=== PATIENT | male | born 1965 | race Caucasian/White ===

== ENCOUNTER 2022-04-17 08:06 | Emergency (ER) | payer OTHER ==
[~2022-04-17] VITALS: Ht 170 cm; Wt 90.0 kg
[2022-04-17] MEDS ORDERED: AUGMENTIN 875 MG TAB (AMOXICILLIN/CLAVULANATE) PO STA (08:31)
[2022-04-17] MEDS ORDERED: AMOX1TAB12 PO (08:37)
--- NOTE | 2022-04-17 08:38 | ED Cough/URI ---
General Chief Complaint: Cough/Cold/Flu Symptoms Stated Complaint: CONGESTION, COUGH Nursing Triage Note: [place], had a neg covid test to return but was feeling like he had a sinus infection, also had diarrhea. Source: patient Exam Limitations: no limitations History of Present Illness Date Seen by Provider: Apr 17, 2022 Time Seen by Provider: 08:25 Initial Comments Patient is a 56-year-old male who presents to the emergency department today with a chief complaint of sinus congestion, nasal discharge, productive cough, generalized malaise and fatigue. Patient has had symptoms for at least 2 weeks. He has been using multiple yycw-fbd-wfezodn symptomatic remedies without any relief of symptoms. He complains of low-grade fever, greenish-yellow nasal discharge. He is a light smoker. He is not a diabetic. He complains of facial pain "like a softball in the middle of my head". Patient did COVID test n egative last monday prior to travel home. No chest pain, nausea or vomiting. He did have a little diarrhea. He just got back from [place] after a 2-week trip last Monday. His symptoms have been steadily worsening. All other review of systems reviewed and negative except as stated. Timing/Duration: other (2+ weeks) Severity/Quality: moderate Prior Episodes/Possible Cause: no prior episodes Associated Symptoms: cough, facial pain, fever/chills (low grade), nasal congestion, nasal drainage, sinus infection Allergies and Home Medications Allergies Coded Allergies: No Known Drug Allergies (Unverified , 04/17/22) Patient Home Medication List Home Medication List Reviewed: Yes Amoxicillin/Potassium Clav (Amox Tr-K Clv 875-125 mg Tab) 875 Mg-125 Mg Tablet, 1 EACH PO BID Prescribed by: SERGEI KLINE on 04/17/22 0837 Review of Systems Review of Systems Constitutional: see HPI, fever, malaise EENTM: nose congestion, nose pain Respiratory: cough, phlegm Cardiovascular: no symptoms reported Gastrointestinal: diarrhea Musculoskeletal: no symptoms reported Skin: no symptoms reported Psychiatric/Neurological: No Symptoms Reported All Other Systems Reviewed Negative Unless Noted: Yes Past Vilebpb-Yvclpg-Mrsnkv Hx Patient Social History Tobacco Use?: Yes Tobacco type used: Cigarettes Smoking Status: Current Everyday Smoker Use of E-Cig and/or Vaping dev: No Substance use?: No Alcohol Use?: Yes Alcohol type: Wine Alcohol Frequency: Couple times a week Immunizations Up To Date Second COVID19 Vaccination [place]: 09/2021 Past Medical History Surgery/Hospitalization HX: vericocele Physical Exam Vital Signs - First Documented 04/17/22 08:16 Temp 36.3 Pulse 74 Resp 18 B/P (MAP) 124/99 (107) Pulse Ox 97 O2 Delivery Room Air Capillary Refill : Less Than 3 Seconds Height: '" Weight: lbs. oz. kg; 31.00 BMI Method: General Appearance: WD/WN, no apparent distress Eyes: Bilateral Eye Normal Inspection, Bilateral Eye PERRL, Bilateral Eye EOMI HEENT: PERRL/EOMI, normal ENT inspection, TMs normal, pharynx normal, other (mid facial pain over max sinuses) Neck: supple Respiratory: lungs clear, normal breath sounds, no respiratory distress, no accessory muscle use Cardiovascular: regular rate, rhythm Extremities: normal range of motion, non-tender, normal inspection, no pedal edema, no calf tenderness, normal capillary refill Neurologic/Psychiatric: alert, normal mood/affect, oriented x 3 Skin: normal color, warm/dry Progress/Results/Core Measures Suspected Sepsis SIRS Temperature: Pulse: 74 Respiratory Rate: 18 Blood Pressure 124 /99 Mean: 107 Results/Orders My Orders Orders - SERGEI KLINE MD Dexamethasone Injection (Decadron Injec (04/17/22 08:45) Amoxicillin/Clavulanate Tablet (Augmenti (04/17/22 08:31) Vital Signs/I&O 04/17/22 08:16 Temp 36.3 Pulse 74 Resp 18 B/P (MAP) 124/99 (107) Pulse Ox 97 O2 Delivery Room Air Capillary Refill : Less Than 3 Seconds Blood Pressure Mean: 107 Departure Impression Primary Impression: Acute sinusitis Qualified Codes: J01.10 - Acute frontal sinusitis, unspecified Disposition: 01 HOME, SELF-CARE Condition: Stable Departure-Patient Inst. Decision time for Depature: 08:36 Patient Instructions: Sinusitis in Adults Add. Discharge Instructions: Continue to use aizc-lhq-eldrqjc Flonase as directed daily. Decongestants such as Sudafed daily. Drink plenty of water to stay well-hydrated. Take the antibiotics twice a day for the next 7 days. You have been given your first dose of antibiotic here this morning at the hospital. The steroid injection may make you feel a little bit energized, can possibly make you a little irritable and can disrupt sleep. Please be aware of this. Return to the emergency department for reevaluation for any worsening, high fever, shortness of breath or other emergent concerning symptoms. Scripts Amoxicillin/Potassium Clav (Amox Tr-K Clv 875-125 mg Tab) 875 Mg-125 Mg Tablet 1 EACH PO BID, #13 TAB Prov: SERGEI KLINE MD 04/17/22 SERGEI KLINE MD Apr 17, 2022 08:38
[2022-04-17 09:15] VITALS: BP 124/99
== END 2022-04-17 09:15 | disposition home or self-care (01) ==
LOC: ER 08:10
DX: J01.10 Acute frontal sinusitis, unspecified (principal); F17.210 Nicotine dependence, cigarettes, uncomplicated
CPT/HCPCS: 99284